=== PATIENT | female | born 1990 | race Caucasian/White ===

== ENCOUNTER 2017-07-09 06:55 | Emergency (ER) | payer MEDICAID ==
[~2017-07-09] VITALS: Ht 149.9 cm; Wt 45.4 kg
[2017-07-09 07:15] VITALS: Ht 149.9 cm; Wt 45.4 kg
[2017-07-09 08:06] VITALS: BP 117/76
== END 2017-07-09 08:17 | disposition home or self-care (01) ==
LOC: ED 06:55
DX: S46.912A Strain of unspecified muscle, fascia and tendon at shoulder and upper arm level, left arm, initial encounter (principal); X58.XXXA Exposure to other specified factors, initial encounter; Y93.89 Activity, other specified; Y92.89 Other specified places as the place of occurrence of the external cause; Y99.8 Other external cause status
CPT/HCPCS: J1885

== ENCOUNTER 2017-08-16 23:01 | Emergency (ER) | payer MEDICAID ==
[~2017-08-16] VITALS: Ht 142.2 cm; Wt 44.0 kg
[2017-08-16 23:12] VITALS: Ht 142.2 cm; Wt 44.0 kg
[2017-08-17 01:30] VITALS: BP 115/72
== END 2017-08-17 03:24 | disposition home or self-care (01) ==
LOC: ED 23:01
DX: S00.03XA Contusion of scalp, initial encounter (principal); Y04.2XXA Assault by strike against or bumped into by another person, initial encounter; Y93.89 Activity, other specified; Y92.89 Other specified places as the place of occurrence of the external cause; Y99.8 Other external cause status
CPT/HCPCS: Q0162

== ENCOUNTER 2017-08-28 11:30 | Emergency (ER) | payer MEDICAID ==
[~2017-08-28] VITALS: Ht 152.4 cm; Wt 43.5 kg
[2017-08-28 11:32] VITALS: Ht 152.4 cm; Wt 43.5 kg
[2017-08-28 12:26] VITALS: BP 122/52
== END 2017-08-28 12:26 | disposition home or self-care (01) ==
LOC: ED 11:30
DX: T78.1XXA Other adverse food reactions, not elsewhere classified, initial encounter (principal); R11.10 Vomiting, unspecified; Z91.011 Allergy to milk products; X58.XXXA Exposure to other specified factors, initial encounter